=== PATIENT | male | born 1965 | race Caucasian/White ===

== ENCOUNTER → 2017-08-06 14:40 | Outpatient (CLI) | payer OTHER, SELFPAY ==
[2017-08-08 20:31] LABS: Fecal Immunochemical Test NOT DETECTED
== END ==
PROVIDERS: PCP Physician Assistant; Visit Provider Physician Assistant
DX: Z12.11 Encounter for screening for malignant neoplasm of colon (principal)
CPT/HCPCS: 82274

== ENCOUNTER → 2018-07-25 09:13 | Outpatient (CLI) | payer OTHER, SELFPAY ==
[2018-07-25 11:25] LABS: Alanine Aminotransferase 27 IU/L (21-72); Albumin 4.6 g/dL (3.5-5.0); Albumin Globulin Ratio 1.6 (1.0-2.8); Alkaline Phosphatase 52 U/L (38-126); Aspartate Aminotransferase 30 IU/L (17-59); Bilirubin Total 0.9 mg/dL (0.2-1.3); Blood Urea Nitrogen 24 mg/dL (9-20); Calcium 9.8 mg/dL (8.4-10.2); Carbon Dioxide 27 mmol/L (22-32); Chloride 102 mmol/L (98-107); Cholesterol 112 mg/dL (140-199); Estimated Glomerular Filt Rate > 60.0 mL/min (>60); Globulin 2.8 g/dL (1.7-4.1); Glucose 95 mg/dL (70-100); HDL Cholesterol 49 mg/dL (40-60); HEMOLYSIS 20 (0-50); LDL Cholesterol Calculated 53 mg/dL (<100); Potassium 4.7 mmol/L (3.4-5.1); Sodium 138 mmol/L (137-145); Total Protein 7.4 g/dL (6.3-8.2); Triglycerides 48 mg/dL (35-150)
== END ==
PROVIDERS: PCP Physician Assistant; Visit Provider Physician Assistant
DX: E78.2 Mixed hyperlipidemia (principal)
CPT/HCPCS: 36415; 80053; 80061

== ENCOUNTER → 2018-07-27 14:04 | Outpatient (CLI) | payer OTHER, SELFPAY ==
[2018-07-27 14:55] LABS: Prostate Specific Antigen Scrn 0.545 ng/mL (0.1-4.0)
== END ==
PROVIDERS: PCP Physician Assistant; Visit Provider Physician Assistant
DX: Z12.5 Encounter for screening for malignant neoplasm of prostate (principal)
CPT/HCPCS: G0103

== ENCOUNTER → 2019-10-18 15:45 | Outpatient (CLI) | payer OTHER, SELFPAY ==
--- NOTE | 2019-10-18 15:46 | DI.RAD.S_ITS ---
PROCEDURE: XR HIP W PEL IF DONE LT 2V INDICATIONS: left pain hip TECHNIQUE: AP pelvis with lateral view(s) of the left hip(s). COMPARISON: [facility], PELVIS W UNILATERAL HIP LEFT, 04/19/2011, 20:37. FINDINGS: Bones: No fractures or dislocations but the degenerative hip joint osteoarthritis as worsened with left greater than right degenerative change, and on the left there is essentially [id number] articulation at the lateral acetabulum. This pattern is present to a lesser degree on the right at the hip joint.. Pelvic ring appears intact. No suspicious bony lesions. Soft tissues: No trauma found. IMPRESSION: Left greater than right near severe degenerative hip joint osteoarthritis bilaterally. Dictated by: Dick Soto M.D. on 10/18/2019 at 16:13 Approved by: Dick Soto M.D. on 10/18/2019 at 16:15
== END ==
PROVIDERS: PCP Internal Medicine; Referring Provider Internal Medicine; Visit Provider Internal Medicine
DX: M25.552 Pain in left hip (principal); M16.0 Bilateral primary osteoarthritis of hip
CPT/HCPCS: 73502

== ENCOUNTER → 2019-10-23 10:57 | Outpatient (CLI) | payer OTHER, SELFPAY ==
[2019-10-23 12:42] LABS: Alanine Aminotransferase 23 IU/L (<50); Albumin 4.7 g/dL (3.5-5.0); Albumin Globulin Ratio 1.6 (1.0-2.8); Alkaline Phosphatase 96 U/L (38-126); Aspartate Aminotransferase 32 IU/L (17-59); BUN Creatinine Ratio 21.9 (6-22); Bilirubin Total 1.1 mg/dL (0.2-1.3); Blood Urea Nitrogen 25 mg/dL (9-20); Carbon Dioxide 27 mmol/L (22-32); Chloride 102 mmol/L (98-107); Cholesterol 207 mg/dL (140-199); Estimated Glomerular Filt Rate > 60.0 mL/min (>60); Glucose 104 mg/dL (70-100); HDL Cholesterol 45 mg/dL (40-60); HEMOLYSIS < 15 (0-50); LDL Cholesterol Calculated 129 mg/dL (<100); Potassium 5.2 mmol/L (3.4-5.1); Sodium 138 mmol/L (137-145); Total Protein 7.7 g/dL (6.3-8.2); Triglycerides 165 mg/dL (35-150)
[2019-10-23 13:12] LABS: Prostate Specific Antigen Scrn 0.702 ng/mL (0.1-4.0)
[2019-10-25 09:14] LABS: Fecal Immunochemical Test Negative (Negative)
== END ==
PROVIDERS: PCP Internal Medicine; Referring Provider Internal Medicine; Visit Provider Internal Medicine
DX: E78.2 Mixed hyperlipidemia (principal); Z12.11 Encounter for screening for malignant neoplasm of colon; Z12.5 Encounter for screening for malignant neoplasm of prostate
CPT/HCPCS: 36415; 80053; 80061; 82274; G0103

== ENCOUNTER → 2019-12-28 14:23 | Outpatient (CLI) | payer OTHER, SELFPAY ==
[2019-12-28 16:02] LABS: Add Manual Diff / Slide Review NO; Basophils Absolute Auto 100 /uL (0-100); Basophils Percent Auto 0.8 % (0-2); Eosinophils Absolute Auto 200 /uL (0-450); Eosinophils Percent Auto 3.7 % (2-4); Hematocrit 44.4 % (41-53); Hemoglobin 14.8 g/dL (13.5-17.5); Lymphocytes Absolute Auto 1300 /uL (1100-4500); Lymphocytes Percent Auto 19.6 % (25-40); Mean Corpuscular HGB Conc 33.2 % (30-36); Mean Corpuscular Hemoglobin 29.9 PG (26-34); Mean Corpuscular Volume 90.2 fL (80-100); Monocytes Absolute Auto 700 /uL (0-900); Monocytes Percent Auto 10.6 % (3-14); Neutrophils Absolute Auto 4300 /uL (1500-7000); Neutrophils Percent Auto 65.3 % (50-75); Platelet Count 223 X10^3/uL (150-400); Red Blood Cell Count 4.93 X10^6/uL (4.5-5.9); White Blood Cell Count 6.6 X10^3/uL (4.5-11.0)
[2019-12-28 16:05] LABS: BUN Creatinine Ratio 27.2 (6-22); Blood Urea Nitrogen 22 mg/dL (9-20); Calcium 9.4 mg/dL (8.4-10.2); Carbon Dioxide 27 mmol/L (22-32); Chloride 104 mmol/L (98-107); Estimated Glomerular Filt Rate > 60.0 mL/min (>60); Glucose 92 mg/dL (70-100); HEMOLYSIS < 15 (0-50); Potassium 4.3 mmol/L (3.4-5.1); Sodium 137 mmol/L (137-145)
== END ==
PROVIDERS: PCP Internal Medicine; Referring Provider Orthopaedic Surgery Adult Reconstructive Orthopaedic Surgery; Visit Provider Orthopaedic Surgery Adult Reconstructive Orthopaedic Surgery
DX: Z01.818 Encounter for other preprocedural examination (principal); Z01.812 Encounter for preprocedural laboratory examination; R73.9 Hyperglycemia, unspecified
CPT/HCPCS: 36415; 80048; 83036; 85025; 93005

== ENCOUNTER → 2020-01-08 08:52 | Outpatient (CLI) | payer OTHER, SELFPAY ==
[2020-01-08 09:31] LABS: COVID19 -Nasal RAPID Negative (Negative)
== END ==
PROVIDERS: PCP Internal Medicine; Visit Provider Physician Assistant
DX: Z11.59 Encounter for screening for other viral diseases (principal)
CPT/HCPCS: 87635

== ENCOUNTER 2020-01-11 08:09 | Day surgery (SDC) | payer OTHER, SELFPAY ==
[2020-01-03 14:27] VITALS: BMI 25.3
[2020-01-11] VITALS (12 sets, daily range): BP systolic 121–166; BP diastolic 71–100; PULSE 56–86; RESP 7–18; TEMP 35.7–37.3; O2SAT 94–100; BMI 25.3
--- NOTE | 2020-01-11 | DI.RAD.S_ITS ---
PROCEDURE: XR HIP W PEL IF DONE LT 2V INDICATIONS: TOTAL LEFT HIP, ANTERIOR INTRA OP FILMS TECHNIQUE: 4 intraoperative fluoroscopic view(s) of the hip acquired. [facility] 13[facility] D[facility] 2V, 10/18/2019, 14:51. FINDINGS: Left total hip arthroplasty with hardware components in expected positions. IMPRESSION: Left total hip arthroplasty is in the expected position Dictated by: Michael Granda M.D. on 01/11/2020 at 19:39 Approved by: Michael Granda M.D. on 01/11/2020 at 19:40
--- NOTE | 2020-01-11 06:00 | DI.RAD.S_ITS ---
PROCEDURE: XR PELVIS 1-2V INDICATIONS: total left hip TECHNIQUE: 1 view of the lower pelvis acquired. COMPARISON: None. FINDINGS: Bones: Patient is status post left hip arthroplasty, with hardware components in expected positions. The hip joint appears congruent. The visualized bony structures appear intact. Soft tissues: Overlying postoperative changes are noted. No suspicious soft tissue densities. IMPRESSION: Normal alignment established after left total hip arthroplasty. Dictated by: Dick Soto M.D. on 01/11/2020 at 14:26 Approved by: Dick Soto M.D. on 01/11/2020 at 14:26
[2020-01-11] MEDS: CELECOXIB 200 MG CAPSULE PO (08:26)
[2020-01-11] MEDS: LACTATED RINGERS 1,000 ML 42 ML IV ×2 (08:26→12:33)
[2020-01-11] MEDS: PREGABALIN 75 MG CAPSULE PO (08:26)
[2020-01-11] MEDS: ACETAMINOPHEN 325 MG TABLET 975 MG PO (08:26)
--- NOTE | 2020-01-11 10:28 | PM.PREOP ---
Pre-operative Note COVID-19 COVID-19 status: Negative Result date/Date tested (Pos, Neg/Pending): 01/08/20 Interval Note History & Physical reviewed/Exam performed by Physician: Yes Changes to H&P: No H&P completed within 30 days and has changed as indicated here:: Plan for left anterior MITZI
[2020-01-11] MEDS: CEFAZOLIN 2 GM/100 ML FROZ.PIGGY IV ×2 (11:20→19:02)
--- NOTE | 2020-01-11 11:48 | SUR.OPER ---
Supine on padded Virgie table with bilateral legs secured in padded positioning boots and suspended in positioning spars, operative leg in traction per surgeon. Head on one pillow. Arm on non-operative side secured on padded armboard <90 degrees abduction. Arm on operative side padded and resting across chest then secured with tape over sheet. Padded perineal post in place per surgeon.
[2020-01-11] MEDS: TRANEXAMIC ACID 1,000 MG VIAL 1000 MG INJ ×2 (11:56→13:16)
[2020-01-11] MEDS: KETOROLAC 30 MG/ML VIAL IV (11:57)
[2020-01-11] MEDS: ROPIVACAINE 0.5% PF 5 MG/ML 20ML VIAL 60 ML INJ (11:57)
[2020-01-11] MEDS: MORPHINE 4 MG/ML INJ INJ (11:57)
--- NOTE | 2020-01-11 13:28 | P.OP_ITS ---
Operative Date/Time/Diagnoses Date of procedure: 01/11/20 Time of procedure: 13:28 Pre-op diagnosis: left hip OA Post-op diagnosis: same Procedure & Clinicians Procedure: left anterior MITZI Same procedure as scheduled: Yes Indications: left hip severe OA Surgeon: Chong Phillips Consumer Product Advisor: Arya Claire Anesthesia Type: General and Spinal Operative Notes Findings: Advacned OA of the left hip with bone on bone articualtion and large osteophytes. Closure Type: primary Specimen(s): none sent Prosthetic devices, grafts, tissues, transplants, or devices: Espinal and Nephew R3 50 mm cup 58 mm x 36 mm neutral liner 1x 25 mm screw Size 10 standard offset anthology stem 36+ 4 Biolox head Estimated Blood Loss (mL): 200 Procedure in detail: Patient was met in the preoperative holding area where the site and side of surgery were marked by . Informed consent had been reviewed in clinic was also reviewed again in the preoperative holding area. All last minute questions were answered. Patient was brought back in the operating room where he received a spinal anesthetic and was transferred onto the Waldron table. Both feet were then placed in Waldron table boots and the left hip was then prepped and draped in normal sterile fashion. A surgical time-out was performed verifying site and side of surgery as well as the name of the patient. A skin incision was made using 10. Blade starting approximately 2 cm distal and 1 cm lateral to the ASIS aiming towards the fibular head. The s incision is proximally 7 cm long. Electrocautery was used to dissect down to the level of the tensor fascia. A new 10. Blade was then used to incise the tensor fascia a Allis clamp was placed on the medial leaf of the tensor fascia and the tensor self was reflected laterally. A Meyerding was then placed over the lateral margin of the rectus and retracted medially. This gave us good exposure to the circumflex femoral vessels which were coagulated with electrocautery. A Cobra was then placed over the superior neck as well as a 2nd Cobra over the inferior neck a curved Hohmann was then placed over the anterior lip of the acetabulum giving us good capsular exposure. An inverted T-shaped capsulotomy was then performed the superior and inferior leaflets were tagged with FiberWire suture. The Cobra retractors then placed intracapsularly this gave us good exposure of the femoral neck. A reciprocating saw was used to make a femoral neck cut based off of our preoperative templated neck length. Retractor was then replaced give us good acetabular exposure the pulmonary was then removed using electrocautery we then began reaming with a 47 mm Reamer and medialized down to the bottom of the cotyloid fossa. We then began upsizing by 2s until I got to a 53 mm Reamer then brought in fluoroscopy to confirm positioning and the last several reamers were reamed under fluoroscopic guidance. I got good resistance at a 57 mm Reamer we then selected a 50 mm cup this was impacted under fluoroscopic guidance and 1 superior dome screw was then placed 25 mm in length. The cup had excellent purchase. A 50 mm x 36 mm neutral liner was then selected and packed into place. Then turned our attention the femoral side a femoral elevator hook was then placed underneath the posterior aspect of the femur the leg was externally rotated to 90? extended to the floor and adducted. A Garland retractor was then placed over the calcar and a bent Hohmann was then placed just superior to our capsular leaflet capsule was then partially released off the greater trochanter give us exposure short external rotators a large single prong retractor was then placed over the greater trochanter and the short external rotators were released in a controlled fashion Walker better exposure. Canal finer was then used into the femur followed by of annamarie sullivan followed by 1. And up sizing to get to a size 8. I then calcar planed off a size 8 broach and we trialed with a standard offset neck and a 36+ 0 head hip was stable to maximal external rotation as well as 90? of external rotation and extension to the floor. Fluoroscopy was brought in cup position looked good although the stem did look a little undersized and we appeared to be 4-5 mm short on this operative side. The trial were then removed I then broached to a size 9 subsequently to a size 10 femoral stem. A size 10 femoral stem was then selected and packed into place and a 36+ 4 Biolox head was selected hip was then reduced a final time the wound was thoroughly irrigated with dilute Betadine solution which was allowed to sit for several minutes this was then lavaged with copious normal saline periarticular local anesthetic was then placed followed by repair of the capsulotomy with Ethibond suture. The FiberWire suture was then removed. The tensor fascia was closed with a running 1. Vicryl followed by 2 Vicryl interrupted fashion in the subcutaneous layer followed by Stratafix on the subcuticular followed by Dermabond and Aquacel dressing. Complications: none Post-operative Condition: stable Disposition: PACU Plan for aftercare: WBAT LLE, 24 hours post-op abx, ASA 81mg BID for 6 weeks
[2020-01-11] MEDS: ACETAMINOPHEN 325 MG TABLET 650 MG PO ×2 (14:31→20:04)
[2020-01-11] MEDS: LACTATED RINGERS 1,000 ML 125 ML IV ×2 (14:32→22:43)
--- NOTE | 2020-01-11 14:45 | PC.ADMIT ---
Safe hand off from PACU, Bhavana ROJAS. Patient VSS, lung sounds clear, bowel tones active in all quadrants. Patient has no complaints of nausea or pain. Lactated Ringers at 125ml/hr. Patient has been encouraged to use IS and SCD's are applied. Patient has been educated about the use of call light, bed is low and locked and call light is within reach. Bed alarm is active. [facility] Admission Note: The patient,Ashok Guerrero,54 y/o, was given written information regarding hospital policies, unit procedures and contact persons. Patient's smoking status: Former smoker. Vital Signs - 8 hr 01/11/20 08:32 01/11/20 13:38 01/11/20 13:43 Temperature 97.3 F L 97.5 F L 97.5 F L Pulse Rate 78 57 L 58 L Respiratory Rate 17 8 L 8 L Blood Pressure 166/92 H 121/72 127/80 Pulse Oximetry 97 98 98 01/11/20 13:48 01/11/20 13:53 01/11/20 14:02 Temperature 96.3 F L 96.6 F L 97.2 F L Pulse Rate 56 L 67 63 Respiratory Rate 7 L 11 L 14 Blood Pressure 136/74 123/84 131/80 Pulse Oximetry 99 99 99 01/11/20 14:16 Temperature 96.9 F L Pulse Rate 61 Respiratory Rate 15 Blood Pressure 149/94 H Pulse Oximetry 99
[2020-01-11] MEDS: IBUPROFEN 400 MG TABLET PO ×2 (16:17→20:04)
[2020-01-11] MEDS: ONDANSETRON 4 MG/2 ML INJ IV (16:17)
--- NOTE | 2020-01-11 16:39 | PT.IIE ---
Current Diagnoses Unilateral primary osteoarthritis, left hip (01/11/20) Surgery Performed Operation Date: 01/11/20 10:15 Actual Procedures p Total Hip Arthroplasty/Anterior Approach(Left) - Chong Phillips MD Surgical History (Last Updated 01/03/20 @ 14:36 by Venus Streeter RN) Hx of removal of cyst Medical History (Last Updated 11/29/19 @ 15:15 by Ezequiel Strong MD) Osteoarthritis, hip, bilateral Physical Therapy Inpatient Evaluation/Re-Eval M1 PT/OT-IP Prior Functional Status Start: 01/11/20 15:20 Freq: NEEDED Status: Active Protocol: Document 01/11/20 16:19 AW (Rec: 01/11/20 16:32 AW [id number]) Medical Review Prior Functional Status Medical History Reviewed Yes Communication WNL. Pt is an effective verbal communicator. Mobility and Gait Pt is independent with all mobility. H gardens, bikes, and walks with his for activity. Activities of Daily Living and IADL's Independent with all I/ADL's Social History Household Members spouse,children Living Arrangements House Number of Floors (Floors) One Floor Number of Stairs To Enter/Railing? 5 ANDREI with R rail ascending Home Environment Standard Height Toilet,Tub/ Shower Home Equipment Front Wheel Walker,Straight Cane Additional Social History Comment Pt lives with his , Angelita, who works from home but has planned to take one week off to assist the pt at home after surgery. M2 PT-IP Current Condition Start: 01/11/20 15:20 Freq: NEEDED Status: Active Protocol: Document 01/11/20 16:19 DE (Rec: 01/11/20 16:35 DE [id number]) Physical Therapy Current Condition Current Condition Evaluation Date 01/11/20 Treatment Diagnosis L MITZI anterior; Difficulty with walking Precautions Anterior Hip Precautions No Hip Extension,No Hip External Rotation Weight Bearing Status Weight Bearing Status Weight Bear as Tolerated M3 PT-IP Subjective Start: 01/11/20 15:20 Freq: NEEDED Status: Active Protocol: Document 01/11/20 16:19 DE (Rec: 01/11/20 16:35 DE [id number]) Subjective Physical Therapy Visit Type Type Initial Evaluation Visit Start Time 15:33 Visit Stop Time 16:16 Total Visit Minutes 43 Notes SPT Stefan and co-tx with PT Aster throughout the entire session. Number of SAMPLE CARRIER Visits 0 Physical Therapy Visit Comments Patient Comments Pt is agreeable to do PT. M4 PT-IP Mobility and Gait Start: 01/11/20 15:20 Freq: NEEDED Status: Active Protocol: Document 01/11/20 16:19 DE (Rec: 01/11/20 16:35 DE [id number]) PT-Bed Mobility Assessment Supine to Sit Supine to Sit Contact Guard Assistance Scooting Scooting to Edge of Bed Contact Guard Assistance PT-Transfer Assessment Sit to and From Stand Sit to and from Stand Contact Guard Assistance Equipment Transfer Assistive Device Gait Belt,Front Wheeled Walker Orthotic/Prosthetic Devices or Brace: No Transfers Transfer Destination Chair Transfer Technique Stand Step Pivot Transfer Ability Level of Assist Contact Guard Assistance,Use of Upper Extremities Comments Mobility Comments Pt was lying supine in bed upon arrival. Pt's was at bedside. Pt completed supine to sit at R EOB with CGA and use of BUE. Pt then performed sit to stand with CGA and FWW. Pt had a couple unsuccessful attempts but was able to complete it. Pt performed standing marching with FWW CGA . His feet did not come off the floor high but was still able to tolerate WB on his LLE well. Pt took a couple steps forward to perform stand-step pivot into the chair that was on the R side. Pt performed stand to sit transfer very slowly. Pt c/o nausea and had emesis for 200 ml while in the chair. Notified RN. Call light placed within reach. Pt' s remained in the room. Gait Assessment Comments Gait Comments Not assessed. Stair Climbing Assessment Comments Stair Climbing Comments Not assessed. PT-Balance Assessment Sitting Balance and Reactions Static Sitting Balance Ability Normal Dynamic Sitting Balance Ability Good Standing Balance and Reactions Static Standing Balance Ability Good Dynamic Standing Balance Ability Fair M5 PT-IP Objective Assessments Start: 01/11/20 15:20 Freq: NEEDED Status: Active Protocol: Document 01/11/20 16:19 DE (Rec: 01/11/20 16:35 DE [id number]) Orientation Orientation/Cognition Level of Alertness Alert Orientation Name,Age,Birthday,Month,Date, Year,Day of Week,Place, Situation Language Function Ability No Deficits Noted Safety Awareness Understands Safety Issues Memory Description No Deficits Noted Gross Range of Motion Lower Extremity ROM Assessment Left Impaired Strength Lower Extremity Strength Assessment Left Impaired Coordination Assessment Gross Coordination Gross Coordination WNL Sensation Assessment Sensation Gross Sensation Left LE Impaired Light Touch Impaired Comments Sensation Comments Pt had numbness in his LLE. Muscle Tone Muscle Tone WNL Yes M6 PT-IP Treatment Start: 01/11/20 15:20 Freq: NEEDED Status: Active Protocol: Document 01/11/20 16:19 DE (Rec: 01/11/20 16:35 DE [id number]) Physical Therapy Treatment Education Education Provided Precautions,Weight Bearing Status,Post-Op Packet,Safety Other Treatments Other Treatment Performed Pt was educated on precautions , WB status, safety, and role of PT. M7 PT-IP Assessment and Plan Start: 01/11/20 15:20 Freq: NEEDED Status: Active Protocol: Document 01/11/20 16:19 AW (Rec: 01/11/20 16:32 AW [id number]) PT Summary Assessment and Plan Potential Rehabilitation Potential Good Status of Condition at Evaluation Evolving Summary Impairments Pain,ROM,Strength,Balance, Sensation,Bed Mobility, Transfers,Gait,Activity Tolerance Assessment Summary Flores is a 54 yo man seen for PT evaluation on POD0 following L MITZI with anterior approach. He is independent in all regards at baseline. Pt lives with his who has planned to take time off from her job to assist the pt at home. On evaluation, pt was limited by nausea, vomiting, and lightheadedness, requiring CGA for transfers using FWW. He was unable to tolerate any further activity. Pt is not safe for discharge at this time but PT anticipates he will progress toward goals and be safe to return home with assist and outpatient PT once medically cleared. He will need to improve mobility and clear stairs before discharge. Goals Bed Mobility Goal Standby Assistance Transfer Goal Standby Assistance,Front Wheeled Walker Gait Goal Standby Assistance,Front Wheel Walker Gait Distance 200 Other Goals - up/down 5 steps with right rail ascending SBA Frequency of Treatment Frequency Of Treatment Twice a Day Treatment Plan Physical Therapy Treatment Plan Bed Mobility Training,Transfer Training,Gait Training, Therapeutic Exercise,Balance Retraining,Post Op Education, Discharge Planning,Hot or Cold Pack,Manual Therapy Other Recommendations and Next Treatment review precautions, ther ex, Focus gait training with FWW, stairs Recommendations To Nursing Amount of Assist Needed 1 Person Assist Discharge Recommendations PT Discharge Recommendations Home with Assistance, Outpatient PT Transportation Needs at Discharge Private Vehicle Treatment was provided by ALISHA Murillo and supervised by Aster Reese PT. I personally reviewed this note and agree with its contents.
[2020-01-11] MEDS: OXYCODONE IR 5 MG TABLET PO ×2 (20:04→22:42)
[2020-01-11] MEDS: ASPIRIN EC 81 MG TABLET PO (20:04)
[2020-01-11] MEDS: DOCUSATE 100 MG CAPSULE PO (20:04)
[2020-01-11 20:10] LABS: Add Manual Diff / Slide Review NO; Basophils Absolute Auto 0 /uL (0-100); Basophils Percent Auto 0.3 % (0-2); Eosinophils Absolute Auto 100 /uL (0-450); Eosinophils Percent Auto 0.9 % (2-4); Hematocrit 39.8 % (41-53); Lymphocytes Absolute Auto 800 /uL (1100-4500); Lymphocytes Percent Auto 6.2 % (25-40); Mean Corpuscular HGB Conc 32.6 % (30-36); Mean Corpuscular Hemoglobin 29.3 PG (26-34); Mean Corpuscular Volume 89.7 fL (80-100); Monocytes Absolute Auto 1300 /uL (0-900); Monocytes Percent Auto 10.2 % (3-14); Neutrophils Absolute Auto 10800 /uL (1500-7000); Neutrophils Percent Auto 82.4 % (50-75); Platelet Count 190 X10^3/uL (150-400); Red Blood Cell Count 4.44 X10^6/uL (4.5-5.9); Red Cell Distribution Width 13.7 % (11.6-14.8); White Blood Cell Count 13.1 X10^3/uL (4.5-11.0)
--- NOTE | 2020-01-11 20:39 | PC.NURSE ---
Patient got up with PT at the beginning of the shift and has been up in the chair most of the shift. While up with PT, patient did have any episode of N/V (200ml of emesis), zofran has been effective and patient did not have any more episodes of N/V. Patient has denied any pain while up in the chair. Once he ambulate back to the bed his pain did increase to 7/10, patient was given oxycodone and scheduled tylenol,/ibuprofen. Patient now states pain has decreased down to 4/10. Patient has been A&O, calm and cooperative this shift.
[2020-01-12] MEDS: CEFAZOLIN 2 GM/100 ML FROZ.PIGGY IV (02:01)
[2020-01-12] MEDS: IBUPROFEN 400 MG TABLET PO ×2 (02:02→08:25)
[2020-01-12] MEDS: OXYCODONE IR 5 MG TABLET PO ×3 (02:02→09:29)
[2020-01-12 02:06] VITALS: BP 132/78; PULSE 83; RESP 18; TEMP 36.7; O2SAT 96
[2020-01-12 05:24] LABS: Hematocrit 38.8 % (41-53); Hemoglobin 12.9 g/dL (13.5-17.5)
[2020-01-12 05:41] VITALS: BP 147/85; PULSE 95; RESP 18; TEMP 37; O2SAT 95
[2020-01-12] MEDS: DOCUSATE 100 MG CAPSULE PO (08:25)
[2020-01-12] MEDS: ACETAMINOPHEN 325 MG TABLET 650 MG PO (08:25)
[2020-01-12] MEDS: ASPIRIN EC 81 MG TABLET PO (08:25)
[2020-01-12 08:51] VITALS: BP 144/95; PULSE 87; RESP 16; TEMP 36.6; O2SAT 95
--- NOTE | 2020-01-12 11:10 | PT.IPTN ---
Current Diagnoses Unilateral primary osteoarthritis, left hip (01/11/20) Surgery Performed Operation Date: 01/11/20 10:15 Actual Procedures p Total Hip Arthroplasty/Anterior Approach(Left) - Chong Phillips MD Physical Therapy Treatment Note M2 PT-IP Current Condition Start: 01/11/20 15:20 Freq: NEEDED Status: Active Protocol: Document 01/11/20 16:19 DE (Rec: 01/11/20 16:35 DE [id number]) Physical Therapy Current Condition Current Condition Evaluation Date 01/11/20 Treatment Diagnosis L MITZI anterior; Difficulty with walking Precautions Anterior Hip Precautions No Hip Extension,No Hip External Rotation Weight Bearing Status Weight Bearing Status Weight Bear as Tolerated M3 PT-IP Subjective Start: 01/11/20 15:20 Freq: NEEDED Status: Active Protocol: Document 01/12/20 10:43 DE (Rec: 01/12/20 11:08 DE [id number]) Subjective Physical Therapy Visit Type Type Treatment Note Visit Start Time 09:30 Visit Stop Time 09:54 Total Visit Minutes 24 Notes SPT Stefan and co-tx with PT Nagi throughout the entire session. Number of LAP MACHINE TENDER Visits 0 Physical Therapy Visit Comments Patient Comments Pt is agreeable to do PT. M4 PT-IP Mobility and Gait Start: 01/11/20 15:20 Freq: NEEDED Status: Active Protocol: Document 01/12/20 10:43 DE (Rec: 01/12/20 11:08 DE [id number]) PT-Transfer Assessment Sit to and From Stand Sit to and from Stand Contact Guard Assistance Equipment Transfer Assistive Device Gait Belt,Front Wheeled Walker Orthotic/Prosthetic Devices or Brace: No Transfers Transfer Destination Chair Transfer Technique Stand Step Pivot Transfer Ability Level of Assist Contact Guard Assistance,Use of Upper Extremities Comments Mobility Comments Pt was sitting up at R EOB upon arrival. Pt's was at bedside. Pt completed sit to stand with FWW CGA. Pt used his B forearm on the FWW to push off to stand. FWW in the room was short for his height. Pt sat down and rested while PT Nagi went to grab a taller FWW. Pt stood up again with taller FWW, which fit him better. After standing for ~1 min, pt amb ~600 ft total out in the hallway, to the stairs, and back to the room with FWW . Pt was initially CGA but progressed to SBA after ~200 ft. Pt initially demonstrated 3-point step-to pattern leading with L foot but was able to progress to 2-point step-to pattern and eventually progressed to step-through pattern with decreased stride length and decreased feet clearance. Pt was instructed to take smaller steps in order to prevent from going into L hip extension. Pt performed 3 steps up and down x2 CGA with R railing ascending. No unsteadiness or LOB was observed. Pt amb back to the room with FWW SBA and sat down on the chair with B armrests CGA. Pt's brought in their own FWW from the car. PT checked the height of the FWW . Call light placed within reach. Pt's remained in the room. Gait Assessment Gait Gait Assistance Required: Standby Assistance,Contact Guard Assist Distance (Feet) 400 Able to Maintain Weight Bearing Status Yes During Gait Assistive Devices Assistive Device Front Wheeled Walker Orthotic/Prosthetic Devices or Brace: No Gait Deviations General Gait Pattern Antalgic,Decreased Stride Length,Decreased Feet Clearance Factors Limiting Gait Function Factors Limiting Gait Function Decreased Activity Tolerance, Decreased Strength,Limited Range of Motion,Pain,Poor Balance Comments Gait Comments See mobility comments. Stair Climbing Assessment Evaluation Level of Assist On Stairs Contact Guard Assistance Devices Stair Climbing Assistive Devices Right Railing Technique/Endurance Stair Climbing Direction Ascend and Descend Stair Climbing Technique Step to Step Number of Steps Climbed 3 Stair Climbing Set # Repetitions (reps) 2 Comments Stair Climbing Comments See mobility comments. PT-Balance Assessment Sitting Balance and Reactions Static Sitting Balance Ability Normal Dynamic Sitting Balance Ability Good Standing Balance and Reactions Static Standing Balance Ability Good Dynamic Standing Balance Ability Fair M5 PT-IP Objective Assessments Start: 01/11/20 15:20 Freq: NEEDED Status: Active Protocol: Document 01/11/20 16:19 DE (Rec: 01/11/20 16:35 DE [id number]) Orientation Orientation/Cognition Level of Alertness Alert Orientation Name,Age,Birthday,Month,Date, Year,Day of Week,Place, Situation Language Function Ability No Deficits Noted Safety Awareness Understands Safety Issues Memory Description No Deficits Noted Gross Range of Motion Lower Extremity ROM Assessment Left Impaired Strength Lower Extremity Strength Assessment Left Impaired Coordination Assessment Gross Coordination Gross Coordination WNL Sensation Assessment Sensation Gross Sensation Left LE Impaired Light Touch Impaired Comments Sensation Comments Pt had numbness in his LLE. Muscle Tone Muscle Tone WNL Yes M6 PT-IP Treatment Start: 01/11/20 15:20 Freq: NEEDED Status: Active Protocol: Document 01/12/20 10:43 DE (Rec: 01/12/20 11:08 DE [id number]) Physical Therapy Treatment Education Education Provided Precautions,Weight Bearing Status,Post-Op Packet,Safety Other Treatments Other Treatment Performed Pt was educated on precautions , WB status, safety, and role of PT. M7 PT-IP Assessment and Plan Start: 01/11/20 15:20 Freq: NEEDED Status: Active Protocol: Document 01/12/20 10:43 DE (Rec: 01/12/20 11:08 DE [id number]) PT Summary Assessment and Plan Potential Rehabilitation Potential Good Status of Condition at Evaluation Evolving Summary Impairments Pain,ROM,Strength,Balance, Sensation,Bed Mobility, Transfers,Gait,Activity Tolerance Assessment Summary Pt required CGA and FWW for sit<>stand. Pt amb ~600 ft with FWW and CGA-SBA. Pt performed 3 steps x2 with R railing ascending and CGA. Pt was steady throughout mobilization without any LOB. Pt is safe for d/c. PT anticipates pt will d/c home with assistance and FWW once medically stable. Pt will benefit from outpatient PT to improve hip ROM and strength as well as balance. Frequency of Treatment Frequency Of Treatment Discharge Recommendations To Nursing Amount of Assist Needed 1 Person Assist Discharge Recommendations PT Discharge Recommendations Home with Assistance, Outpatient PT Transportation Needs at Discharge Private Vehicle Treatment was provided by Stefan Clifford, SPT and supervised by Windy Bond, PT. I personally reviewed this note and agree with its contents.
--- NOTE | 2020-01-12 11:11 | PM.DS.1 ---
History of Present Illness History of Present Illness Date Patient Seen: 01/12/20 Time Patient Seen: 11:11 Chief complaint: LT MITZI *OPB* Narrative: Patient's pain is [id number]. Denies fever or chills. No nausea or vomiting. Patient's is home to assist him. Discharge Providers Provider Discharge Date: 01/12/20 Primary care physician: Ezequiel Strong MD Consults: 01/11/20 06:00 Consult to Anesthesiology Routine Comment: Consulting Provider: Anesthesiologist Reason for consultation: Regional block for post operative pain control 01/11/20 14:14 Consult to Discharge Planning Routine Comment: Consult to Physical Therapy Evaluate & Treat Comment: Physician Instructions: post op MITZI protocol Consult to Respiratory Therapy Evaluate & Treat Comment: Physician Instructions: Evaluate and treat Discharge provider: Arya Claire PA-C Summary Hospital Course Discharge Diagnosis: Left hip osteoarthritis Hospital Course: Procedure: left anterior MITZI Same procedure as scheduled: Yes Indications: left hip severe OA Surgeon: Chong Phillips Universal Banker: Arya Claire Anesthesia Type: General and Spinal Operative Notes Findings: Advacned OA of the left hip with bone on bone articualtion and large osteophytes. Closure Type: primary Specimen(s): none sent Prosthetic devices, grafts, tissues, transplants, or devices: Espinal and Nephew R3 50 mm cup 58 mm x 36 mm neutral liner 1x 25 mm screw Size 10 standard offset anthology stem 36+ 4 Biolox head Estimated Blood Loss (mL): 200 Patient admitted to the hospital for left anterior total hip arthroplasty. Patient consented to the same. Patient taken to operating room yesterday underwent left total hip arthroplasty, anterior approach. Patient back in his room recovering well as in stable condition. Status at Discharge Cognitive/behavioral status at discharge: at baseline, oriented Functional status at discharge: uses cane/walker Overall status at discharge: patient is progressing back to baseline Time Spent with Patient Time spent: Less than 30 minutes Exam Vital Signs (past 8 hours): - 01/12/20 05:41 01/12/20 08:51 Temperature 98.6 F 97.8 F Pulse Rate 95 H 87 Respiratory Rate 18 16 Blood Pressure 147/85 H 144/95 H Pulse Oximetry 95 95 Oxygen Delivery Method Room Air Oxygen Flow Rate 0 Narrative Exam Narrative: 54-year-old male resting comfortably in bed in no apparent distress. Left hip dressing is clean, dry and intact. Motor functions intact distal left lower extremity. Both legs are warm and dry. Sensation grossly intact to light touch. Objective Labs Result Diagrams: 01/12/20 05:01 Labs: Laboratory Results - last 24 hr 01/11/20 01/12/20 19:53 05:01 WBC 13.1 H RBC 4.44 L Hgb 13.0 L 12.9 L Hct 39.8 L 38.8 L MCV 89.7 MCH 29.3 MCHC 32.6 RDW 13.7 Plt Count 190 Neut % (Auto) 82.4 H Lymph % (Auto) 6.2 L [place] % (Auto) 10.2 Eos % (Auto) 0.9 L Baso % (Auto) 0.3 Neut # (Auto) 95668 H Lymph # (Auto) 800 L [place] # (Auto) 1300 H Eos # (Auto) 100 Baso # (Auto) 0 Discharge Assessment & Plan Assessment and Plan Assessment: Postop day 1 status post left anterior total hip arthroplasty. Plan of Treatment: Discharge home today after physical therapy. Weightbearing as tolerated left lower extremity. Aspirin 81 mg b.i.d. for 6 weeks. Follow-up 2 weeks [facility]. Discharge Plan Discharge Plan Patient Disposition: Home Provider Discharge Comment: DC home today after PT Discharge orders & Medications Discharge Orders: Discharge (Order); Ordered 01/12/20 Ordered By: Arya Claire Prescriptions: New acetaminophen 325 mg Tablet 650 mg PO TID Qty: 60 RF: 0 aspirin 81 mg Tablet,Delayed Release (Dr/Ec) 81 mg PO BID Qty: 60 RF: 0 ibuprofen 400 mg Tablet 400 mg PO Q4HR Qty: 60 RF: 0 oxycodone 5 mg Tablet 5 mg PO Q3HR PRN (Reason: Pain, Moderate (4-6)) Qty: 40 RF: 0 Follow up/Referrals: Ezequiel Strong MD [Primary Care Provider] - Chong Phillips MD [Physician] - (2 weeks ) Diet/Activity/Treatments Diet: Diet as Tolerated Activity: WBAT Cold/Heat Therapy: ice as needed Skin/Wound/Dressing Care Report to your healthcare provider any signs of infection, such as:: chills, fever, increased pain and unusual drainage Dressing: keep clean and dry Visit Report/Discharge Packet Instructions: DI for Hip Replacement Stand Alone Forms: Surgery Discharge Discharge Data Primary Care Provider: Ezequiel Strong Attending Provider: Chong Phillips VTE Deep Vein Thrombosis/Pulmonary Embolism Present on Admission: No
--- NOTE | 2020-01-12 11:30 | PC.NURSE ---
All discharge teaching done regarding post op hip replacement instructions for medications, activity, ss/ of infection, ss of stroke and fall precautions. Patient and verbalized understanding of all teaching. Patient left facility w/ paper prescription for Oxycodone. Patient left facility in wheelchair w/ a walker and his to private vehicle. Patient was discharged from facility with all belongings.
== END 2020-01-12 11:59 | disposition home or self-care (01) ==
LOC: OR 08:11 → AC 08:23
PROVIDERS: PCP Internal Medicine; Referring Provider Internal Medicine; Visit Provider Orthopaedic Surgery Adult Reconstructive Orthopaedic Surgery
PROC: (CPT 27130; principal; 2020-01-11 10:15)
DX: M16.12 Unilateral primary osteoarthritis, left hip (principal); M25.752 Osteophyte, left hip
CPT/HCPCS: 27130; 36415; 72170; 73502; 76000; 85014; 85018; 85025; 97116; 97161; 97530; C1776; J0690; J1885; J2250; J2270; J2405; J2704; J3010

== ENCOUNTER → 2021-09-21 06:58 | Outpatient (CLI) | payer OTHER, SELFPAY ==
[2020-01-11 14:15] VITALS: BMI 25.3
[2021-09-21 09:26] LABS: Alanine Aminotransferase 22 IU/L (<50); Albumin 4.4 g/dL (3.5-5.0); Albumin Globulin Ratio 1.6 (1.0-2.8); Alkaline Phosphatase 93 U/L (38-126); Aspartate Aminotransferase 26 IU/L (17-59); BUN Creatinine Ratio 22.4 (6-22); Bilirubin Total 0.8 mg/dL (0.2-1.3); Blood Urea Nitrogen 19 mg/dL (9-20); Carbon Dioxide 26 mmol/L (22-32); Chloride 102 mmol/L (98-107); Cholesterol 183 mg/dL (140-199); Estimated Glomerular Filt Rate > 60 mL/min (>60); Globulin 2.7 g/dL (1.7-4.1); Glucose 104 mg/dL (70-100); HDL Cholesterol 34 mg/dL (40-60); HEMOLYSIS < 15 (0-50); LDL Cholesterol Calculated 108 mg/dL (<100); Potassium 4.3 mmol/L (3.4-5.1); Sodium 138 mmol/L (137-145); Total Protein 7.1 g/dL (6.3-8.2); Triglycerides 207 mg/dL (35-150)
[2021-09-21 09:57] LABS: Prostate Specific Antigen Scrn 0.875 ng/mL (0.1-4.0)
== END ==
PROVIDERS: PCP Internal Medicine; Referring Provider Internal Medicine; Visit Provider Internal Medicine
DX: M16.0 Bilateral primary osteoarthritis of hip (principal); Z13.1 Encounter for screening for diabetes mellitus; Z13.6 Encounter for screening for cardiovascular disorders; Z12.5 Encounter for screening for malignant neoplasm of prostate
CPT/HCPCS: 36415; 80053; 80061; G0103

== ENCOUNTER → 2021-12-14 07:06 | Outpatient (CLI) | payer OTHER, SELFPAY ==
[2020-01-11 14:15] VITALS: BMI 25.3
[2021-12-14 07:48] LABS: Add Manual Diff / Slide Review NO; Basophils Absolute Auto 100 /uL (0-100); Basophils Percent Auto 1.1 % (0-2); Eosinophils Absolute Auto 200 /uL (0-450); Eosinophils Percent Auto 3.6 % (2-4); Hematocrit 47.6 % (41-53); Hemoglobin 15.8 g/dL (13.5-17.5); Lymphocytes Absolute Auto 1200 /uL (1100-4500); Lymphocytes Percent Auto 19.8 % (25-40); Mean Corpuscular HGB Conc 33.3 % (30-36); Mean Corpuscular Hemoglobin 29.3 PG (26-34); Monocytes Absolute Auto 700 /uL (0-900); Monocytes Percent Auto 10.8 % (3-14); Neutrophils Absolute Auto 4000 /uL (1500-7000); Neutrophils Percent Auto 64.7 % (50-75); Platelet Count 249 X10^3/uL (150-400); Red Blood Cell Count 5.41 X10^6/uL (4.5-5.9); White Blood Cell Count 6.2 X10^3/uL (4.5-11.0)
[2021-12-14 07:52] LABS: Hemoglobin A1C% w Est Avg Glu 6.2 % (4.0-6.0)
[2021-12-14 08:11] LABS: Blood Urea Nitrogen 20 mg/dL (9-20); Carbon Dioxide 25 mmol/L (22-32); Chloride 102 mmol/L (98-107); Estimated Glomerular Filt Rate > 60 mL/min (>60); Glucose 127 mg/dL (70-100); HEMOLYSIS 27 (0-50); Potassium 4.4 mmol/L (3.4-5.1); Sodium 138 mmol/L (137-145)
[2021-12-14 08:15] LABS: Appearance Urine UA CLEAR; Bilirubin Urine UA NEGATIVE (NEGATIVE); Color Urine UA YELLOW; Glucose Urine UA NEGATIVE (Negative); Ketones Urine UA NEGATIVE (NEGATIVE); Leukocyte Esterase Urine UA NEGATIVE (NEGATIVE); Nitrite Urine UA NEGATIVE (Negative); Occult Blood Urine UA 2+ (Negative); Protein Urine UA TRACE (Negative); Specific Gravity Urine UA 1.015 (1.000-1.035); Urobilinogen Urine UA 0.2 E.U./dL (0.2); pH Urine UA 5.5 (4.5-8.0)
[2021-12-14 08:31] LABS: Amorphous Sediment Urine 1+; Bacteria Urine None Seen; Culture Indicated Urine Cult Not Indicated; RBC Urine 1-5/HPF (0-5/HPF); WBC Urine None Seen (0-5/HPF)
== END ==
PROVIDERS: PCP Internal Medicine; Referring Provider Orthopaedic Surgery; Visit Provider Orthopaedic Surgery
DX: Z01.818 Encounter for other preprocedural examination (principal); Z01.812 Encounter for preprocedural laboratory examination; R73.9 Hyperglycemia, unspecified; N39.0 Urinary tract infection, site not specified
CPT/HCPCS: 36415; 80048; 81001; 83036; 85025; 93005; 93010

== ENCOUNTER → 2021-12-25 15:49 | Outpatient (CLI) | payer OTHER, SELFPAY ==
[2020-01-11 14:15] VITALS: BMI 25.3
--- NOTE | 2021-12-25 | DI.CT.S_ITS ---
PROCEDURE: CT IVP A/P W/WO INDICATIONS: Hematuria, unspecified TECHNIQUE: Optional 5 mm thick noncontrast images acquired from the diaphragm to the symphysis pubis. After the administration of intravenous contrast, 5 mm thick images acquired from the diaphragm to the symphysis pubis after a 10-minute delay. 2 mm thick coronal and sagittal reformats were then performed of the kidneys and ureters. For radiation dose reduction, the following was used: automated exposure control, adjustment of mA and/or kV according to patient size. COMPARISON: None. FINDINGS: Image quality: Excellent. Lung bases: Lung bases are clear. Heart size is normal. Urinary system: Both kidneys are normal in size, without hydronephrosis. There is a nonobstructing 5 mm calculus within the lower pole of the right kidney. No left nephrolithiasis. No hydroureter or ureterolithiasis. No perinephric fat stranding. There is normal bilateral renal enhancement. A subcentimeter cystic lesion is present within the upper pole of the left renal cortex. Renal calyces appear normal in morphology when filled with contrast. Opacified portions of both ureters demonstrate normal caliber. Bladder wall thickness is overall normal. A lobulated mass is present at the floor of the bladder. It is unclear whether this represents the nodular dome of the prostate or a true exophytic bladder mass. No calcified bladder stones. Other solid organs: Liver is normal in size and enhancement. Gallbladder is unremarkable . Biliary system is non dilated. Pancreas enhances normally. Spleen is normal in size and enhancement. No adrenal nodules. Peritoneum and bowel: Bowel loops demonstrate normal wall thickness and caliber. The appendix is thin walled and gas filled. No free fluid or air. Nodes and vessels: No retroperitoneal or mesenteric adenopathy by size criteria. Aorta and inferior vena cava are normal in size. There are scattered atheromatous calcifications throughout the aorta and iliac arteries bilaterally. Abdominal wall: No ventral hernias. Pelvis: No pathologic free pelvic fluid. No inguinal adenopathy. There are bilateral fat containing inguinal hernias. Bones: No suspicious bony lesions. No vertebral body compression fractures. IMPRESSION: 1. Nonobstructing right nephrolithiasis. No hydronephrosis, left nephrolithiasis, hydroureter, or ureterolithiasis. 2. Questionable nodular mass at the floor of the bladder versus nodular dome of the prostate. Direct visualization recommended. 3. No acute intra-abdominal findings. Normal appendix. Dictated by: Ce Clark M.D. on 12/25/2021 at 17:01 Approved by: Ce Clark M.D. on 12/25/2021 at 17:07
== END ==
PROVIDERS: PCP Internal Medicine; Referring Provider Internal Medicine; Visit Provider Internal Medicine
DX: R31.9 Hematuria, unspecified (principal); N20.0 Calculus of kidney
CPT/HCPCS: 74178

== ENCOUNTER → 2022-02-16 07:56 | Outpatient (CLI) | payer OTHER, SELFPAY ==
[2020-01-11 14:15] VITALS: BMI 25.3
[2022-02-16 08:50] LABS: COVID19 -Nasal RAPID Negative (Negative)
== END ==
PROVIDERS: PCP Internal Medicine; Referring Provider Orthopaedic Surgery; Visit Provider Orthopaedic Surgery
DX: Z20.822 Contact with and (suspected) exposure to COVID-19 (principal)
CPT/HCPCS: 87635; C9803

== ENCOUNTER 2022-02-19 06:07 | Day surgery (SDC) | payer OTHER, SELFPAY ==
[2020-01-11 14:15] VITALS: BMI 25.3
[2022-02-13 13:45] VITALS: BMI 26.4
[2022-02-19] VITALS (18 sets, daily range): BP systolic 132–207; BP diastolic 89–116; PULSE 80–117; RESP 10–36; TEMP 35.9–37.1; O2SAT 90–97; BMI 27.1
--- NOTE | 2022-02-19 06:48 | DI.RAD.S_ITS ---
PROCEDURE: XR HIP W PEL IF DONE RT 2V INDICATIONS: TOTAL RIGHT HIP TECHNIQUE: Intraoperative fluoroscopic right hip views were acquired. [facility], 12:18. [facility], [facility]AREN, XR HIP W PEL IF DONE LT 2V, 10/18/2019, 14:51. FINDINGS: Bones: Multiple intraoperative views demonstrate interval placement of a right hip arthroplasty. IMPRESSION: Intraoperative fluoroscopic views of right hip arthroplasty. Dictated by: Ce Clark M.D. on 02/19/2022 at 11:54 Approved by: Ce Clark M.D. on 02/19/2022 at 11:55
[2022-02-19] MEDS: VANCOMYCIN 1,000 MG/200 ML PIGGYBACK 200 MG IV (07:03)
[2022-02-19] MEDS: CELECOXIB 200 MG CAPSULE PO (07:25)
[2022-02-19] MEDS: ACETAMINOPHEN 325 MG TABLET 975 MG PO (07:25)
[2022-02-19] MEDS: LACTATED RINGERS 1,000 ML 42 ML IV ×2 (07:27→08:59)
[2022-02-19 07:29] LABS: COVID19 -Nasal RAPID Negative (Negative)
--- NOTE | 2022-02-19 07:36 | PM.OP.1 ---
Operative Date/Time/Diagnoses Date of procedure: 02/19/22 Time of procedure: 07:55 Pre-op diagnosis: Right hip osteoarthritis Post-op diagnosis: same Procedure & Clinicians Procedure: Right total hip arthroplasty anterior approach Same procedure as scheduled: Yes Indications: The patient has had progressively worsening right hip pain with radiographic changes consistent with arthritis. Non-operative management has failed and the patient has requested total hip replacement. The risks, benefits and alternatives to surgery were discussed with the patient prior to proceeding. Risks discussed included, but were not limited to, failure to relieve pain, leg length discrepancy, dislocation, stiffness, infection, nerve damage, deep venous thrombosis, pulmonary embolism, stroke, coma, heart attack, permanent paralysis and , as well as the potential need for eventual revision of the prosthetic. Surgeon: Marine Espinal Printer Slotter Helper: Lola Cardona Anesthesia Type: General and Spinal Operative Notes Findings: Severe right hip OA, tense effusion, adequate stability, adequate bone Closure Type: primary Specimen(s): none sent Prosthetic devices, grafts, tissues, transplants, or devices: Espinal and nephew anthology size 9 standard offset, 36 x 58 neutral liner, 58 R3 cup, +0 Oxinium head,one 6.5 mm screw Estimated Blood Loss (mL): 250 Blood products transfused: none Procedure in detail: The patient was brought to the operating room. Patient was carefully positioned in the supine position. Time-out was performed and antibiotics were given. Anesthesia was induced. He was positioned in the on the table in order to allow hyperextension of the hip. The right lower extremity was prepped and draped in a standard sterile fashion. An anterior right hip incision was made 1 fingerbreadth lateral to the anterior superior iliac spine and extended distally towards the greater trochanter. Dissection was carried out through skin and subcutaneous tissues. Superficial hemostasis was achieved. The fascia over the tensor fascia clare was defined and incised with a knife. Two Allis clamps were used to grasp the fascia. Tensor fascia clare was retracted laterally. A gelpi retractor was placed. Dissection was carried out down along the neck. The circumflex vessels were carefully identified and cauterized with the Aqua Mantis. There was good visualization of the femoral neck. A Cobra was placed superior to the neck and the gluteus fibers were carefully stripped from that superior aspect of the capsule. A 2nd retractor was placed along the inferior aspect of the neck. The rectus insertion along the capsule was partially released. A 3rd retractor that was then gently placed over the rim of the acetabulum under the rectus. Capsule was carefully incised and released from the intertrochanteric line circumferentially superior to the mid sagittal line and inferiorly to the mid sagittal line until the lesser trochanter was palpable. A tag stitch was placed both in the superior and inferior limb of the capsular insertion. Along the acetabulum capsule was also released up to the mid sagittal 12:00 position. A portion of the labrum was resected. A saw was used to perform an osteotomy at the level of the intertrochanteric line and the junction of the superior femoral neck leaving approximately 1 finger breath of residual inferior neck above the lesser trochanter. A 2nd cut was made along the femoral neck at the base of the head and a napkin ring of neck was removed. Corkscrew was placed in the femoral head and the head was removed without difficulty. Retractors were then repositioned around the acetabulum. Residual labrum was resected and additional osteophytes were removed. A reamer that was 4 mm below the templated size was placed by hand in the acetabulum and it was reamed to centralize the acetabulum. It was then reamed up to 2 under the templated size and fluoroscopy was brought in to confirm the position of the reaming and depth of reaming. I reamed 1 under the anticipated size. A trial cup was placed and noted that it was appropriately sized and fluoroscopy confirmed position and depth. The component was open and inserted without difficulty fluoroscopic imaging was used to confirm that the cup had been adequately seated and was well positioned. It was further stabilized with a single screw. Neutral poly liner was placed. The cup was tested and noted to be stable. Attention was then directed to the femur. The femur was gently hyperextended additional capsular release was performed as needed in order to allow adequate visualization of the proximal femur with elevation of the femur. Patient was placed in a hyperextended slightly adducted position with maximum external rotation. Box osteotome was used to check for any residual neck as well as sclerotic bone along the trochanter. [place] pepper was placed in the femur. Additional broaching was performed. Canal finder was used to determine the alignment of the canal and position. Size 1 broach was placed. The canal was then appropriately broached up to the templated size as long as there was adequate stability of the broach and serial advancement of the broach without excessive impingement. Specific attention was directed at avoiding varus attempting to direct the distal aspect of the broach more anteriorly and avoiding excessive anteversion. Trial reduction showed acceptable range of motion, good stability, no posterior impingement, pentecostal of leg length and appropriate lateral shuck. I also hyperflexed the hip and checked that there was no impingement anteriorly and there was good stability with flexion, adduction and internal rotation. Marcaine and Exparel were injected. The stem was placed without difficulty. Repeat trial reduction and x-ray showed acceptable overall position, length, and no evidence of the femoral fracture. Final head was placed. Wound was meticulously irrigated with normal saline. The hip was reduced and additional Exparel and Marcaine were injected. The capsule was closed with interrupted nonabsorbable sutures. The fascia of the tensor was closed with interrupted and running Vicryl. No drain was placed. Any tensor fascia clare muscle that appeared to be contused or injured which was a minimal amount was carefully resected. Capsule around the tensor was injected with Exparel and Marcaine. The skin was closed with barbed stitches for the subcutaneous tissue and skin. We also used surgical glue. The wound was dressed sterilely. Brief Betadine soak was also used and was meticulously irrigated with normal saline. Patient was transferred to recovery room in satisfactory condition. Complications: none Post-operative Condition: stable Disposition: Acute Care Plan for aftercare: The patient will be maintained on a standard total hip replacement protocol with weight bearing as tolerated and anterior hip precautions. The patient will receive Aspirin and sequential compression devices for DVT prophylaxis. The patient will be discharged home when safe for the home environment.
--- NOTE | 2022-02-19 07:36 | PM.PREOP ---
Pre-operative Note COVID-19 COVID-19 status: Negative Interval Note History & Physical reviewed/Exam performed by Physician: Yes Changes to H&P: No
[2022-02-19] MEDS: CEFAZOLIN 2 GM/100 ML PREMIX 100 ML IV (08:00)
[2022-02-19] MEDS: TRANEXAMIC ACID 1,000 MG VIAL 2000 MG INJ ×2 (08:29→10:05)
[2022-02-19] MEDS: BUPIVACAINE 0.5% W/ EPI (PF) 30 ML VIAL INJ (08:31)
[2022-02-19] MEDS: BUPIVACAINE LIPOSOME 266 MG/20 ML VIAL INJ (08:32)
--- NOTE | 2022-02-19 08:35 | SUR.OPER ---
Patient supine on padded [place] table, one arm on padded arm board at <90, other arm padded and secured with tape across patient's chest, both legs secured in padded traction boots and positioned per surgeon, padded post at patient's groin, pressure points checked and padded.
--- NOTE | 2022-02-19 10:04 | DI.RAD.S_ITS ---
PROCEDURE: XR HIP W PEL IF DONE RT 2V INDICATIONS: RIGHT TOTAL HIP TECHNIQUE: AP pelvis and lateral view of the or hip acquired. COMPARISON: [facility], [facility]AREN, XR HIP W PEL IF DONE RT 2V, 02/19/2022, 10:23. FINDINGS: Bones: Patient is status post right hip arthroplasty, with hardware components in expected positions. Postsurgical changes compatible with prior left hip arthroplasty also noted. The hip joint appears congruent. The visualized bony structures appear intact. Soft tissues: Overlying postoperative changes are noted. No suspicious soft tissue densities. IMPRESSION: Expected postsurgical change for right hip arthroplasty. Dictated by: Delmy Becerra MD, PhD on 02/19/2022 at 13:23 Approved by: Delmy Becerra MD, PhD on 02/19/2022 at 13:28
--- NOTE | 2022-02-19 11:21 | SUR.PHASEI ---
Discussed BP of 153/[address] Holguin. Patient denied chest pain, nausea. No diaphoresis noted. No new orders per MD due to admit BP.
[2022-02-19] MEDS: ONDANSETRON 4 MG/2 ML INJ IV (11:28)
--- NOTE | 2022-02-19 11:30 | SUR.PHASEI ---
Patient given applesauce and vomited quickly afterward. Zofran provided. Nausea resolved.
--- NOTE | 2022-02-19 11:38 | P.DS_ITS ---
History of Present Illness History of Present Illness Chief complaint: MITZI anterior Right *OPB* Narrative: Please see prior chart note from today Discharge Providers Provider Discharge Date: 02/19/22 Primary care physician: Ezequiel Strong MD Consults: 02/19/22 06:48 Consult to Anesthesiology Routine Comment: Consulting Provider: Anesthesiologist Reason for consultation: Regional block for post operative pain control Discharge provider: Lola Cardona PA-C Summary Hospital Course Discharge Diagnosis: Right hip osteoarthritis Hospital Course: Operative Date/Time/Diagnoses Date of procedure: 02/19/22 Time of procedure: 07:55 Procedure & Clinicians Procedure: Right total hip arthroplasty anterior approach Same procedure as scheduled: Yes Indications: The patient has had progressively worsening right hip pain with radiographic changes consistent with arthritis. Non-operative management has failed and the patient has requested total hip replacement. The risks, benefits and alternatives to surgery were discussed with the patient prior to proceeding. Risks discussed included, but were not limited to, failure to relieve pain, leg length discrepancy, dislocation, stiffness, infection, nerve damage, deep venous thrombosis, pulmonary embolism, stroke, coma, heart attack, permanent paralysis and , as well as the potential need for eventual revision of the prosthetic. Surgeon: Marine Espinal Admissions Officer: Lola Cardona Anesthesia Type: General and Spinal Operative Notes Findings: Severe right hip OA, tense effusion, adequate stability, adequate bone Closure Type: primary Specimen(s): none sent Prosthetic devices, grafts, tissues, transplants, or devices: Espinal and nephew anthology size 9 standard offset, 36 x 58 neutral liner, 58 R3 cup, +0 Oxinium head,one 6.5 mm screw Estimated Blood Loss (mL): 250 Blood products transfused: none Status at Discharge Cognitive/behavioral status at discharge: at baseline, oriented Functional status at discharge: uses cane/walker Overall status at discharge: patient is progressing back to baseline Exam Vital Signs (past 8 hours): - 02/19/22 07:27 02/19/22 10:58 02/19/22 10:42 Temperature 98.8 F 98.1 F Pulse Rate 86 83 113 H Respiratory Rate 12 10 L 36 H Blood Pressure 178/106 H 187/109 H 168/113 H Pulse Oximetry 94 91 90 L Oxygen Delivery Method Room Air Room Air Room Air Oxygen Flow Rate 02/19/22 11:06 02/19/22 11:12 02/19/22 11:01 Temperature 97.3 F L Pulse Rate 82 84 80 Respiratory Rate 20 11 L Blood Pressure 157/95 H 180/104 H 157/95 H Pulse Oximetry 97 96 Oxygen Delivery Method Nasal Cannula Nasal Cannula Oxygen Flow Rate 4 4 02/19/22 10:47 02/19/22 10:52 02/19/22 10:56 Temperature Pulse Rate 117 H 103 H 90 Respiratory Rate 24 24 12 Blood Pressure 132/114 H 174/110 H 173/107 H Pulse Oximetry 92 92 91 Oxygen Delivery Method Room Air Room Air Room Air Oxygen Flow Rate 02/19/22 11:14 02/19/22 11:16 Temperature Pulse Rate 82 83 Respiratory Rate 26 H Blood Pressure 157/103 H 153/101 H Pulse Oximetry 94 Oxygen Delivery Method Room Air Oxygen Flow Rate Oxygen Delivery Method Room Air Oxygen Flow Rate 4 Objective Labs Labs: Laboratory Results - last 24 hr 02/19/22 06:48 SARS-CoV-2 (PCR) Negative [facility] Medical History COVID-19 virus infection (~09/2021) Osteoarthritis, hip, bilateral Surgical History Hx of removal of cyst S/P hip replacement (~12/2019) Family History Father Hypertension Mother Multiple sclerosis Sister Age: 54 Smoker Hx pulmonary embolism Social History household members: spouse Smoking Status: Former smoker Tobacco: How many years used: 26 alcohol intake: current substance use type: marijuana Discharge Assessment & Plan Assessment and Plan Assessment: -stable status post right total hip arthroplasty, anterior approach Plan of Treatment: -mobilize with PT. Weightbearing as tolerated with front wheel walker. Maintain anterior hip precautions x6 weeks -continue with multimodal pain management. Patient already has prescriptions for home from his preoperative visit. -aspirin 81 mg b.i.d. x6 weeks for DVT prophylaxis -DC home today once cleared by PT Discharge Plan Discharge Plan Patient Disposition: Home Discharge orders & Medications Discharge Orders: Discharge (Order); Ordered 02/19/22 Ordered By: Lola Cardona Prescriptions: New aspirin 81 mg tablet,delayed release (DR/EC) 81 mg PO BID 42 Days Qty: 84 0RF Rx Instructions: Prevent blood clots docusate sodium 100 mg tablet 100 mg PO BID PRN (Reason: constipation) Qty: 30 0RF acetaminophen [Tylenol Extra Strength] 500 mg tablet 500 mg PO Q4-6H MDD 3000mg per day PRN (Reason: pain) Qty: 90 0RF Rx Instructions: ok for OTC oxycodone 5 mg capsule 5 mg PO Q4H PRN (Reason: pain) Qty: 42 0RF ibuprofen 400 mg tablet 400 mg PO Q4H PRN (Reason: pain/inflammation) Qty: 90 0RF Follow up/Referrals: Ezequiel Strong MD [Primary Care Provider] - Marine Espinal MD [Physician] - As previously scheduled (10-14 days for a postop visit) Diet/Activity/Treatments Diet: Diet as Tolerated Other treatments: Medications: -Aspirin 81mg twice daily x6 weeks to prevent blood clots. -OTC Tylenol 500 mg 1 tablet every 4 hours as needed for pain/fever. Max 6 tablets per day. -Ibuprofen 400 mg 1 tablet every 4 hours as needed for pain/inflammation. Max 2,400 mg per day. -Oxycodone 5 mg take 1-2 tablets every 4 hours as needed for moderate-severe pain (narcotic pain medication). -Vistaril (hydroxyine) 25mg 1 tab every 4 hours as needed for spasms/pain/nausea. -As needed medications: -Ducolax and /or MiraLax as needed for constipation from narcotic pain medications. -Pepcid AC as needed for stomach upset (usually from aspirin or ibuprofen). Dressing/Wound care: -Keep Aquacell dressing in place until postoperative follow-up office visit. -Okay to shower. Keep wound out of direct water stream. No soaking or submerging until all the scabs fall off (approximately 6 weeks). -No lotions, ointments, or scar creams directly to the incision until the wound is healed (4-6 weeks), -Please call the office if dressing becomes wet, soiled, or saturated. Activities: -Maintain anterior hip precautions x6 weeks. -Weight-bearing as tolerated. Use front wheeled walker, and progress to cane when safe. -Continue with home exercises as directed by your physical therapist. -Elevate ?toes above the nose if you have significant swelling in your lower leg. (A wedge pillow is easiest.) -Ice your incision as needed for pain/inflammation/swelling. Protect your skin with a folded pillowcase. Follow-up: -Follow-up with your surgeon or PA in the office in 10-14 days after surgery. -Follow-up with your surgeon 6 weeks postoperatively. Call the office if you have chest pain, shortness of breath, significant swelling that will not resolve with elevating, fever over 101?, significantly worsening pain, or are concerned you might need to go to the Emergency Room. [facility] Orthopedics: [phone] Skin/Wound/Dressing Care Report to your healthcare provider any signs of infection, such as:: chills, fever, night sweats, unusual drainage and unusual redness Visit Report/Discharge Packet Instructions: DI for Hip Replacement Stand Alone Forms: Surgery Discharge Discharge Data Primary Care Provider: Ezequiel Strong Attending Provider: Marine Espinal
--- NOTE | 2022-02-19 11:41 | SUR.PHASEI ---
Report called to BOB Lantigua.
--- NOTE | 2022-02-19 11:42 | SUR.PHASEI ---
Patient transferred to the floor with his belongings bag. Report given to Grzegorz. VS stable. IV saline locked. Right hip dressing CDI.
[2022-02-19] MEDS: LACTATED RINGERS 1,000 ML 125 ML IV (12:40)
[2022-02-19] MEDS: OXYCODONE IR 5 MG TABLET PO (14:16)
--- NOTE | 2022-02-19 15:00 | PT.IIE ---
Current Diagnoses Unilateral primary osteoarthritis, right hip (02/19/22) Surgery Performed Operation Date: 02/19/22 07:45 Actual Procedures p Total Hip Arthroplasty/Anterior Approach(Right) - Marine Espinal MD Surgical History (Last Reviewed 02/19/22 @ 11:40 by Lola Cardona PA-C) Hx of removal of cyst S/P hip replacement (~12/2019) Medical History (Last Reviewed 02/19/22 @ 11:40 by Lola Cardona PA-C) COVID-19 virus infection (~09/2021) Osteoarthritis, hip, bilateral Physical Therapy Inpatient Evaluation/Re-Eval M1 PT/OT-IP Prior Functional Status Start: 02/19/22 16:12 Freq: NEEDED Status: Active Protocol: Document 02/19/22 15:00 AB (Rec: 02/19/22 16:34 AB [id number]) Medical Review Prior Functional Status Medical History Reviewed Yes Communication able to make needs known Mobility and Gait pt stated that he is independent with all mobilities and ambulation without AD Social History Household Members spouse Living Arrangements House Number of Floors (Floors) One Floor Number of Stairs To Enter/Railing? 5 steps R rail ascending to enter the house Home Environment Standard Height Toilet,Tub/ Shower Home Equipment Front Wheel Walker,Straight Cane Employment Status [employer] Employed Additional Social History Comment pt stated that he works at the [employer] spouse will be off work until Feb 26 to assist pt and will be working from home 4th and 5th M2 PT-IP Current Condition Start: 02/19/22 16:12 Freq: NEEDED Status: Active Protocol: Document 02/19/22 15:00 AB (Rec: 02/19/22 16:34 AB [id number]) Physical Therapy Current Condition Current Condition Evaluation Date 02/19/22 Treatment Diagnosis s/p R MITZI anterior approach; difficulty in walking Onset Date 02/19/22 M3 PT-IP Subjective Start: 02/19/22 16:12 Freq: NEEDED Status: Active Protocol: Document 02/19/22 15:00 AB (Rec: 02/19/22 16:34 AB [id number]) Subjective Physical Therapy Visit Type Type Initial Evaluation Visit Start Time 15:00 Visit Stop Time 16:02 Total Visit Minutes 62 Number of PARACHUTE RIGGER Visits 0 Physical Therapy Visit Comments Patient Comments agreeable to do PT Therapy Pain Assessment Pain Present Pain Present Denied Pain M4 PT-IP Mobility and Gait Start: 02/19/22 16:12 Freq: NEEDED Status: Active Protocol: Document 02/19/22 15:00 AB (Rec: 02/19/22 16:34 AB [id number]) PT-Bed Mobility Assessment Supine to Sit Supine to Sit Independent PT-Transfer Assessment Sit to and From Stand Sit to and from Stand Standby Assistance,Use of Upper Extremities Equipment Transfer Assistive Device Front Wheeled Walker Orthotic/Prosthetic Devices or Brace: No Transfers Transfer Destination Toilet Transfer Technique ambulated Transfer Ability Level of Assist Standby Assistance Comments Mobility Comments pt supine in bed. spouse in room with pt. BP: 209/113, rechecked: 187/111. informed nurse. educated pt and spouse regarding anterior hip precautions. pt requires cues to recall but spouse able to cue pt. Nurse came in to check back on pt and stated that Dr. Espinal will send pt home even without PT eval and with high BP. nurse stated that she will call Dr. Espinal again. informed nurse that PT will continue with PT eval but will be conservative due to high BP for safety and PT eval will be completed especially if the doctor wants pt to go home today. Pt requesting to use the toilet. completed supine to sit independent. able to sit on EOB SBA. BP checkedP 186/ 105. nurse came back and stated that the doctor order BP meds for pt. pt completed sit to stand SBA and ambulated to the toilet using fWW SBA. cued for hip precautions and safety. pt continues to require cues to adhere to precautions. informed spouse to remind the pt and agreed. pt completed toileting needs standing sBA using FWW for support. ambulated towards the sink using FWW SBA and was able to maintain standing using fWW for support SBA while completing handwashing. pt ambulated to EOB using FWW SBA . pt agreed to do stairs. opted to do step stool with handle due to high BP and limiting movement/ambulation. educated pt on up/down steps. pt completed up/down steps using R rail SBA and cues for techniques. spouse was able to cue pt. pt completed x 3 sets. pt agreed to ambulate in room and completed ~ 25 ft using FWW SBA and cues provided. pt sat on EOB. nuse in room and provided IV BP meds. BP checked: 162/94. educated spouse to cue pt for safety and understood. pt and spouse without further concerns. Pt wanted to sit on EOB. call light and table within reach. Left pt with spouse in room. Gait Assessment Gait Gait Assistance Required: Standby Assistance Distance (Feet) 25 Able to Maintain Weight Bearing Status Yes During Gait Assistive Devices Assistive Device Gait Belt,Front Wheeled Walker Orthotic/Prosthetic Devices or Brace: No Gait Deviations General Gait Pattern Decreased Stride Length, Decreased Feet Clearance Factors Limiting Gait Function Factors Limiting Gait Function Decreased Activity Tolerance, Decreased Strength,Difficulty Following Directions,Limited Range of Motion,Poor Balance, Poor Safety Awareness Stair Climbing Assessment Evaluation Level of Assist On Stairs Standby Assistance Devices Stair Climbing Assistive Devices Right Railing Technique/Endurance Stair Climbing Direction Ascend and Descend Stair Climbing Technique Step to Step Number of Steps Climbed 1 Query Text: Stair Climbing Set # Repetitions (reps) 3 PT-Balance Assessment Sitting Balance and Reactions Static Sitting Balance Ability Normal Dynamic Sitting Balance Ability Normal Standing Balance and Reactions Static Standing Balance Ability Good Dynamic Standing Balance Ability Fair Device Used FWW M5 PT-IP Objective Assessments Start: 02/19/22 16:12 Freq: NEEDED Status: Active Protocol: Document 02/19/22 15:00 AB (Rec: 02/19/22 16:34 AB [id number]) Orientation Orientation/Cognition Level of Alertness Alert Orientation Name,Place,Situation Language Function Ability No Deficits Noted Safety Awareness Decreased Safety Awareness Memory Description Short Term Impaired Gross Range of Motion Lower Extremity ROM Assessment Within Functional Limits Strength Lower Extremity Strength Hip 4-/5 Knee 4-/5 Coordination Assessment Gross Coordination Gross Coordination WNL Sensation Assessment Sensation Gross Sensation WNL Muscle Tone Muscle Tone WNL Yes M6 PT-IP Treatment Start: 02/19/22 16:12 Freq: NEEDED Status: Active Protocol: Document 02/19/22 15:00 AB (Rec: 02/19/22 16:34 AB [id number]) Physical Therapy Treatment Education Education Provided Precautions,Weight Bearing Status,Post-Op Packet,Safety M7 PT-IP Assessment and Plan Start: 02/19/22 16:12 Freq: NEEDED Status: Active Protocol: Document 02/19/22 15:00 AB (Rec: 02/19/22 16:34 AB [id number]) PT Summary Assessment and Plan Potential Rehabilitation Potential Good Status of Condition at Evaluation Evolving Summary Impairments Pain,ROM,Strength,Balance, Coordination,Sensation,Tone, Cognition,Bed Mobility, Transfers,Gait,Activity Tolerance Assessment Summary pt requiring SBA with mobility but requires cues for hip precautions. spouse will assist pt at home and able to provide cues to pt. Mobility limited due to high BP. pt stated that he has outpt PT scheduled. pt may go home when medically stable. Goals Bed Mobility Goal Independent Transfer Goal Independent,Front Wheeled Walker Gait Goal Independent,Front Wheel Walker Gait Distance 200 Other Goals up/down 5 steps R rail ascending mod I Days to Meet Goals 3 Frequency of Treatment Frequency Of Treatment Twice a Day Treatment Plan Physical Therapy Treatment Plan Bed Mobility Training,Transfer Training,Gait Training, Therapeutic Exercise,Balance Retraining,Post Op Education, Discharge Planning,Hot or Cold Pack,Neuromuscular Re-ed, Coordination Retraining,Manual Therapy Precautions Anterior Hip Precautions No Hip Extension,No Hip External Rotation Weight Bearing Status Weight Bearing Status Weight Bear as Tolerated Allowed Weight Bearing Amount (enter % RLE: WBAT or #) (%) Recommendations To Nursing Amount of Assist Needed Standby Assistance Discharge Recommendations PT Discharge Recommendations Home with Assistance, Outpatient PT Transportation Needs at Discharge Private Vehicle
--- NOTE | 2022-02-19 15:32 | PC.NURSE ---
Addendum entered by Grzegorz Marie R.N. 02/19/22 16:40: patient responded well to IV medication given to lower b/p. Patient was given mult. teaching info packets to help decrease blood pressure at home and made aware to f/u with PCP regarding elevated b/p while in hospital. Patient teaching done at bedside with spouse and patient. All questions and concerns were address. Patient was escorted to personal vehicle via wheelchair. Patient was in stable condition. Original Note: patient's blood pressure is elevated, call placed to Dr. Espinal regarding b/p's 200/100 and 204/115. Verbal order for 5mg Metoprolol IV to be given and educate patient to screen blood pressures at home. Patient also educated by this nurse to f/u with PCP to re-eval blood pressures and discuss possibly treatment. Will provide patient with patient teaching material regarding hypertension.
[2022-02-19] MEDS: METOPROLOL TARTRATE 5 MG/5 ML INJ IV (15:52)
== END 2022-02-19 16:44 | disposition home or self-care (01) ==
LOC: OR 06:08 → AC 06:09
PROVIDERS: PCP Internal Medicine; Referring Provider Internal Medicine; Visit Provider Orthopaedic Surgery
PROC: (CPT 27130; principal; 2022-02-19 07:45)
DX: M16.11 Unilateral primary osteoarthritis, right hip (principal); Z20.822 Contact with and (suspected) exposure to COVID-19
CPT/HCPCS: 27130; 73502; 76000; 87635; 97162; 97530; C1776; C9803; C9290; J0690; J1100; J1170; J2250; J2405; J2704; J3010

== ENCOUNTER → 2024-07-24 08:09 | Outpatient (CLI) | payer OTHER, SELFPAY ==
[2022-02-19 12:04] VITALS: BMI 27.1
[2024-07-24 09:23] LABS: Alanine Aminotransferase 29 IU/L (<50); Albumin 4.4 g/dL (3.5-5.0); Albumin Globulin Ratio 1.6 (1.0-2.8); Alkaline Phosphatase 110 U/L (38-126); Aspartate Aminotransferase 36 IU/L (17-59); BUN Creatinine Ratio 28.3 (6-22); Bilirubin Total 0.8 mg/dL (0.2-1.3); Blood Urea Nitrogen 28 mg/dL (9-20); Carbon Dioxide 26 mmol/L (22-32); Chloride 106 mmol/L (98-107); Cholesterol 206 mg/dL (140-199); Estimated Glomerular Filt Rate > 60 mL/min (>60); Globulin 2.7 g/dL (1.7-4.1); Glucose 106 mg/dL (70-99); HDL Cholesterol 44 mg/dL (40-60); HEMOLYSIS < 15 (0-50); LDL Cholesterol Calculated 140 mg/dL (<100); Potassium 5.1 mmol/L (3.4-5.1); Sodium 139 mmol/L (137-145); Total Protein 7.1 g/dL (6.3-8.2); Triglycerides 108 mg/dL (35-150)
[2024-07-24 09:53] LABS: Prostate Specific Antigen Scrn 1.06 ng/mL (0.1-4.0)
== END ==
PROVIDERS: PCP Internal Medicine; Referring Provider Internal Medicine; Visit Provider Internal Medicine
DX: Z12.5 Encounter for screening for malignant neoplasm of prostate (principal); Z13.220 Encounter for screening for lipoid disorders; Z13.6 Encounter for screening for cardiovascular disorders; Z13.1 Encounter for screening for diabetes mellitus
CPT/HCPCS: 36415; 80053; 80061; G0103